=== PATIENT | male | born 1935 | race Hispanic/Latino ===

== ENCOUNTER → 2019-10-28 | Outpatient (CLI) | payer MEDICARE ==
[~2019-10-28] MED LIST: DIATRIZOATE MEGL/DIATRIZOA SOD 30 ML BTL PO ONE; IOPAMIDOL 370 MG/ML 200 ML INFUS..BTL INJ ONE; SODIUM CHLORIDE 0.9% 50ML 50 ML ONE
[2019-10-28 15:17] LABS: BLOOD UREA NITROGEN 19 mg/dL (7-26); BUN/CREATININE RATIO 18 (6-25); CREATININE, SERUM 1.07 mg/dL (0.72-1.25); EST GLOMERULAR FILTRATION RATE > 60 ML/MIN (60-)
--- NOTE | 2019-10-28 16:18 | Diagnostic Imaging Report ---
EXAM: CT Abdomen and Pelvis WITH intravenous contrast INDICATION: Abdominal pain COMPARISON: None. TECHNIQUE: Abdomen and pelvis were scanned utilizing a multidetector helical scanner from the lung base to the pubic symphysis after administration of IV contrast. Coronal and sagittal reformations were obtained. Routine protocol was performed. Scan was performed during portal venous phase. IV CONTRAST: 100mL of Isovue 370 ORAL CONTRAST: Gastrografin RADIATION DOSE: Total DLP: 412 mGy*cm Dose modulation, iterative reconstruction, and/or weight based adjustment of the mA/kV was utilized to reduce the radiation dose to as low as reasonably achievable. FINDINGS: LOWER THORAX: Normal. HEPATOBILIARY: Diffuse hepatic steatosis. No focal liver lesion. No intrahepatic biliary ductal dilation. The common bile duct is prominent and measures up to 8 mm but is within normal range for a patient of this age. Unremarkable gallbladder. SPLEEN: Absent. PANCREAS: No focal masses or ductal dilatation. ADRENALS: No adrenal nodules. KIDNEYS/URETERS: No hydronephrosis or solid mass lesion. Bilateral renal cysts measure up to 4.6 cm on the left and 1.5 cm on the right. Nonobstructive 4 mm left renal calculi. PELVIC ORGANS/BLADDER: The prostate is enlarged and measures up to 5.2 x 5.3 x 5.2 cm (volume estimate 75 cc). PERITONEUM / RETROPERITONEUM: No free air or fluid. LYMPH NODES: No lymphadenopathy. VESSELS: Scattered atherosclerotic calcifications of the nonaneurysmal abdominal aorta and major branches. GI TRACT: Severe sigmoid and descending colon diverticulosis. No CT evidence of diverticulitis. Apparent focal thickening in the pyloric region (axial image 23). BONES AND SOFT TISSUES: No acute osseous injury. IMPRESSION: Severe sigmoid and descending colon diverticulosis without CT evidence of diverticulitis. Apparent focal thickening in the pyloric region may be related to underdistention/peristalsis however a focal lesion in this area cannot be excluded. Further evaluation can be made with upper endoscopy. Nonobstructive 4 mm left renal calculi. Prostatomegaly. Diffuse hepatic steatosis. Signed by: Abhay Calles MD on 10/28/2019 4:15 PM
== END ==
LOC: CT 14:20
PROVIDERS: ATTEND Family Medicine
DX: R10.32 Left lower quadrant pain (principal)
CPT/HCPCS: 36415; 74177; 82565; 84520; Q9967

== ENCOUNTER → 2019-12-24 | Day surgery (SDC) | payer MEDICARE, OTHER ==
[2019-12-19 15:31] LABS: BASOPHILS % 0.6 % (0.0-1.0); EOSINOPHILS # (AUTO) 0.8 (0.0-0.4); HEMATOCRIT 41.7 % (38.2-49.6); HEMOGLOBIN 13.5 g/dL (14.0-18.0); LYMPHOCYTES # (AUTO) 1.7 (1.0-3.2); LYMPHOCYTES % 26.4 % (18.0-39.1); MEAN CORPUSCULAR HEMOGLOBIN 31.7 pg (28-32); MEAN CORPUSCULAR HGB CONC 32.4 g/dL (31-35); MEAN CORPUSCULAR VOLUME 97.9 fL (81-99); MONOCYTES # (AUTO) 0.8 (0.2-0.8); MONOCYTES % 12.8 % (4.4-11.3); PLATELET COUNT 288 x10e3/uL (140-360); RED BLOOD COUNT 4.26 x10e6/uL (4.3-5.7); RED CELL DISTRIBUTION WIDTH 13.2 % (11.7-14.4)
--- NOTE | 2019-12-19 15:34 | Diagnostic Imaging Report ---
EXAMINATION: CHEST 2 VIEWS INDICATION: Pre-operative COMPARISON: None FINDINGS: LINES/TUBES:None LUNGS:The lungs are well-inflated. No focal consolidation or pulmonary edema. PLEURA:No pleural effusion or pneumothorax. MEDIASTINUM:The cardiomediastinal silhouette appears normal in size and shape. BONES/SOFT TISSUES:No acute osseous injury. ABDOMEN:No free air under the diaphragm. IMPRESSION: No focal pneumonia or pulmonary edema. Signed by: Abhay Calles MD on 12/19/2019 3:31 PM
[2019-12-19 15:55] LABS: ALBUMIN 3.6 g/dL (3.5-5.0); ALBUMIN/GLOBULIN RATIO 0.9 (0.8-2.0); ANION GAP 12.5 mmol/L (8-16); CALCIUM 9.4 mg/dL (8.4-10.2); CREATININE, SERUM 1.17 mg/dL (0.72-1.25); POTASSIUM 4.5 mmol/L (3.5-5.1)
[~2019-12-24] MED LIST changes: +ACETAMINOPHEN/CODEINE 300MG - 30MG TAB ONE; +AMLODIPINE BESYL5 MG PO; +AMOXICILLIN250 MG PO; +BUPIVACAINE 0.25% 30ML SDV INJ ONE; +CEFAZOLIN SOD 1 GM VIAL ONE; +CLARITHROMYCIN500 MG PO; +DEXAMETHASONE SOD PHOS INJ 4 MG/ML VIAL ONE; -DIATRIZOATE MEGL/DIATRIZOA SOD 30 ML BTL PO ONE; +FENTANYL CITRATE/PF 100MCG/2 ML INJ ONE; +HEPARIN SOD (PORCINE) 5,000 UNIT/ML VIAL ONE; -IOPAMIDOL 370 MG/ML 200 ML INFUS..BTL INJ ONE; +LANSOPRAZOLE30 MG PO; +LIDOCAINE HCL 2% LOCAL INJ 5 ML SDV VIAL INJ ONE; +ONDANSETRON HCL INJ 2MG/ML 2ML 2 MG/ML VIAL ONE; +PROPOFOL IV EMULSION 10 MG/ML 20 ML VIAL ONE; +SEVOFLURANE INHAL SOLN 250 ML PEN BTL ONE; +SODIUM CHLORIDE 0.9% 500ML 500 ML ONE; -SODIUM CHLORIDE 0.9% 50ML 50 ML ONE
--- NOTE | 2019-12-24 11:53 | Operative Report ---
DATE OF PROCEDURE: 12/24/2019 SURGEON: Oscar Palmer MD PREOPERATIVE DIAGNOSIS: Rectal cancer, needing IV access for chemotherapy. POSTOPERATIVE DIAGNOSIS: Rectal cancer, needing IV access for chemotherapy. OPERATION PERFORMED: Placement of left subclavian venous access port under C-arm guidance. CASING INSPECTOR: PIPPA Vidal. ANESTHESIA: General. COMPLICATIONS: None. ESTIMATED BLOOD LOSS: Minimal. DESCRIPTION OF PROCEDURE: With the patient lying in bed in the supine position under good general anesthesia, the left chest and neck were prepped with Betadine solution and draped in the usual manner. A standard left subclavian venipuncture was performed without any difficulty and a guidewire was advanced into the central venous position. Using the C-arm, the tip of the guidewire was confirmed to be at the level of the superior vena cava and the left lung was fully expanded. A pocket was then created in the left anterior chest to accept the reservoir. The catheter was threaded through the left subclavian position. The reservoir was anchored to anterior chest wall with interrupted sutures of 2-0 silk. The catheter was cut to the appropriate length and the reservoir and catheter were fully heparinized. The peel-away sheath was then placed over the guidewire. The guidewire was removed and the catheter was threaded through the peel-away sheath without any difficulty. The peel-away sheath was removed. There was good blood return and the reservoir and catheter were fully heparinized. Using the C-arm, the tip of the catheter was confirmed to be at the level of the superior vena cava and the left lung was fully expanded. The wounds were then closed in layers. Subcutaneous tissue was approximated with 3-0 and 4-0 Vicryl. The skin was closed with subcuticular 5-0 Vicryl. Benzoin and Steri-Strips were applied. A dressing was placed. Sponge, lap, and needle count was correct. The patient tolerated the procedure well and returned to the recovery room in stable condition. MD TANNER Brooke/CARINAL /[id number]
[2019-12-24 12:25] VITALS: BP 152/94
== END | disposition home or self-care (01) ==
LOC: OR 06:56
PROVIDERS: ATTEND Surgery
DX: C20 Malignant neoplasm of rectum (principal); K57.90 Diverticulosis of intestine, part unspecified, without perforation or abscess without bleeding; I10 Essential (primary) hypertension; Z01.812 Encounter for preprocedural laboratory examination; Z01.818 Encounter for other preprocedural examination; Z11.59 Encounter for screening for other viral diseases
CPT/HCPCS: 36415; 36561; 71046; 77001; 80053; 85025; C1751; J0690; J1100; J1644; J2001; J2405; J2704; J3010; J7040; U0002

== ENCOUNTER 2020-03-29 07:23 | Inpatient (IN) | payer MEDICARE ==
[2020-03-25 10:57] LABS: BASOPHILS # (AUTO) 0.1 (0.0-0.1); BASOPHILS % 0.8 % (0.0-1.0); EOSINOPHILS # (AUTO) 0.6 (0.0-0.4); EOSINOPHILS % 9.6 % (0.0-6.0); HEMATOCRIT 38.7 % (38.2-49.6); HEMOGLOBIN 12.7 g/dL (14.0-18.0); LYMPHOCYTES # (AUTO) 0.6 (1.0-3.2); LYMPHOCYTES % 9.1 % (18.0-39.1); MEAN CORPUSCULAR HEMOGLOBIN 33.2 pg (28-32); MEAN CORPUSCULAR HGB CONC 32.8 g/dL (31-35); MEAN CORPUSCULAR VOLUME 101.3 fL (81-99); MONOCYTES % 15.6 % (4.4-11.3); NEUTROPHILS # (AUTO) 4.2 (2.1-6.9); NEUTROPHILS % 64.6 % (38.7-80.0); PLATELET COUNT 231 x10e3/uL (140-360); RED BLOOD COUNT 3.82 x10e6/uL (4.3-5.7); RED CELL DISTRIBUTION WIDTH 14.4 % (11.7-14.4)
[2020-03-25 11:41] LABS: ALANINE AMINOTRANSFERASE 14 IU/L (0-55); ALBUMIN 3.7 g/dL (3.5-5.0); ALBUMIN/GLOBULIN RATIO 0.9 (0.8-2.0); ALKALINE PHOSPHATASE 78 IU/L (40-150); ANION GAP 11.9 mmol/L (8-16); BLOOD UREA NITROGEN 23 mg/dL (7-26); BUN/CREATININE RATIO 21 (6-25); CALCIUM 9.4 mg/dL (8.4-10.2); CARBON DIOXIDE 28 mmol/L (22-29); CHLORIDE 104 mmol/L (98-107); CREATININE, SERUM 1.11 mg/dL (0.72-1.25); EST GLOMERULAR FILTRATION RATE > 60 ML/MIN (60-); GLUCOSE 108 mg/dL (74-118); POTASSIUM 3.9 mmol/L (3.5-5.1); SODIUM 140 mmol/L (136-145)
[~2020-03-29] VITALS: Ht 167.6 cm; Wt 75.3 kg
[~2020-03-29 07:23] MED LIST changes: -ACETAMINOPHEN/CODEINE 300MG - 30MG TAB ONE; -BUPIVACAINE 0.25% 30ML SDV INJ ONE; -CEFAZOLIN SOD 1 GM VIAL ONE; -DEXAMETHASONE SOD PHOS INJ 4 MG/ML VIAL ONE; -FENTANYL CITRATE/PF 100MCG/2 ML INJ ONE; +FLAXSEED1000 MG PO; -HEPARIN SOD (PORCINE) 5,000 UNIT/ML VIAL ONE; -LIDOCAINE HCL 2% LOCAL INJ 5 ML SDV VIAL INJ ONE; -ONDANSETRON HCL INJ 2MG/ML 2ML 2 MG/ML VIAL ONE; -PROPOFOL IV EMULSION 10 MG/ML 20 ML VIAL ONE; -SEVOFLURANE INHAL SOLN 250 ML PEN BTL ONE; -SODIUM CHLORIDE 0.9% 500ML 500 ML ONE; +VITAMIN D310 MCG PO; +VITAMIN E400 UNI1 PO; +ZINC SULFATE220 M1 PO
[2020-03-29] MEDS ORDERED: HEPARIN SOD/SOD CHLORIDE 1,000 ML ONE (08:04)
[2020-03-29] MEDS ORDERED: ACETAMINOPHEN 1000 MG/100 ML 100 ML IV ONE (11:25)
[2020-03-29] MEDS ORDERED: HYDROMORPHONE 1MG/1ML INJ ONE (11:35)
[2020-03-29] MEDS ORDERED: FENTANYL CITRATE/PF 100MCG/2 ML INJ ONE ×2 (12:10→15:51)
[2020-03-29] MEDS ORDERED: ONDANSETRON HCL INJ 2MG/ML 2ML 2 MG/ML VIAL ONE (12:59)
[2020-03-29] MEDS ORDERED: ROCURONIUM BROMIDE 10 MG/ML 5ML VIAL IV ONE (12:59)
[2020-03-29] MEDS ORDERED: NEOSTIGMINE 1 MG/ML 10ML VIAL ONE (12:59)
[2020-03-29] MEDS ORDERED: SEVOFLURANE INHAL SOLN 250 ML PEN BTL ONE (12:59)
[2020-03-29] MEDS ORDERED: CEFOXITIN SOD 1 GM VIAL ONE (12:59)
[2020-03-29] MEDS ORDERED: PROPOFOL IV EMULSION 10 MG/ML 20 ML VIAL ONE (12:59)
[2020-03-29] MEDS ORDERED: DEXAMETHASONE SOD PHOS INJ 4 MG/ML VIAL ONE (12:59)
[2020-03-29] MEDS ORDERED: PHENYLEPHRINE HCL 1% 10 MG/ML VIAL ONE (12:59)
[2020-03-29] MEDS ORDERED: GLYCOPYRROLATE INJ 0.2 MG/ML VIAL ONE (12:59)
[2020-03-29] MEDS ORDERED: LIDOCAINE HCL 2% LOCAL INJ 5 ML SDV VIAL INJ ONE (12:59)
[2020-03-29 14:17] LABS: HEMATOCRIT 26.4 % (38.2-49.6); HEMOGLOBIN 8.6 g/dL (14.0-18.0)
[2020-03-29] MEDS ORDERED: SODIUM CHLORIDE 0.9% 250ML 250 ML IV ONE (14:45)
[2020-03-29] MEDS: SODIUM CHLORIDE 0.9% 250ML IRRIG IR SCH ×4 (15:15→23:00)
[2020-03-29] MEDS ORDERED: ACETAMINOPHEN 1000 MG/100 ML IV PRN (15:15)
[2020-03-29] MEDS ORDERED: METOCLOPRAMIDE HCL 10 MG/2ML VIAL ONE (16:19)
[2020-03-29] MEDS: CEFTRIAXONE SOD 1 GM/NS 50 ML 50 ML IV SCH (17:13)
[2020-03-29] MEDS: SODIUM CHLORIDE 0.9% 1000ML 1,000 ML IV SCH (17:13)
[2020-03-29] MEDS: PANTOPRAZOLE 40 MG 10ML VIAL IV SCH (17:13)
[2020-03-29 17:45] VITALS: BP 109/68
[2020-03-29 18:14] VITALS: BP 109/68
[2020-03-29] MEDS: ONDANSETRON HCL INJ 2MG/ML 2ML 2 MG/ML VIAL IV PRN (18:47)
[2020-03-29] MEDS: HYDROMORPHONE 1MG/1ML INJ IV PRN ×2 (18:48→22:27)
[2020-03-29 20:12] VITALS: BP 105/75
[2020-03-29 20:13] VITALS: BP 105/75
[2020-03-30] VITALS (10 sets, daily range): BP systolic 107–138; BP diastolic 63–88
[2020-03-30] MEDS: SODIUM CHLORIDE 0.9% 1000ML 1,000 ML IV SCH ×3 (03:00→22:52)
[2020-03-30] MEDS: SODIUM CHLORIDE 0.9% 250ML IRRIG IR SCH ×6 (03:01→23:25)
[2020-03-30] MEDS: HYDROMORPHONE 1MG/1ML INJ IV PRN ×6 (05:11→22:52)
[2020-03-30] MEDS: ONDANSETRON HCL INJ 2MG/ML 2ML 2 MG/ML VIAL IV PRN ×3 (08:47→23:25)
[2020-03-30 09:30] LABS: BASOPHILS % 0.2 % (0.0-1.0); HEMATOCRIT 32.5 % (38.2-49.6); HEMOGLOBIN 10.7 g/dL (14.0-18.0); LYMPHOCYTES # (AUTO) 0.4 (1.0-3.2); LYMPHOCYTES % 2.2 % (18.0-39.1); MEAN CORPUSCULAR HEMOGLOBIN 32.2 pg (28-32); MEAN CORPUSCULAR HGB CONC 32.9 g/dL (31-35); MEAN CORPUSCULAR VOLUME 97.9 fL (81-99); MONOCYTES # (AUTO) 1.5 (0.2-0.8); MONOCYTES % 8.9 % (4.4-11.3); NEUTROPHILS # (AUTO) 14.5 (2.1-6.9); NEUTROPHILS % 88.2 % (38.7-80.0); PLATELET COUNT 146 x10e3/uL (140-360); RED BLOOD COUNT 3.32 x10e6/uL (4.3-5.7); RED CELL DISTRIBUTION WIDTH 16.3 % (11.7-14.4)
[2020-03-30 09:59] LABS: ALBUMIN 2.6 g/dL (3.5-5.0); ALBUMIN/GLOBULIN RATIO 0.9 (0.8-2.0); ANION GAP 8.9 mmol/L (8-16); CALCIUM 7.8 mg/dL (8.4-10.2); CREATININE, SERUM 1.25 mg/dL (0.72-1.25); POTASSIUM 4.9 mmol/L (3.5-5.1)
[2020-03-30] MEDS: PANTOPRAZOLE 40 MG 10ML VIAL IV SCH (15:15)
[2020-03-30] MEDS: CEFTRIAXONE SOD 1 GM/NS 50 ML 50 ML IV SCH (15:15)
[2020-03-31] VITALS (8 sets, daily range): BP systolic 108–134; BP diastolic 62–82
[2020-03-31] MEDS: SODIUM CHLORIDE 0.9% 250ML IRRIG IR SCH ×3 (03:35→11:01)
[2020-03-31] MEDS: HYDROMORPHONE 1MG/1ML INJ IV PRN ×5 (03:44→20:37)
[2020-03-31] MEDS: ONDANSETRON HCL INJ 2MG/ML 2ML 2 MG/ML VIAL IV PRN ×4 (03:44→17:12)
[2020-03-31] MEDS: SODIUM CHLORIDE 0.9% 1000ML 1,000 ML IV SCH ×2 (07:33→17:12)
[2020-03-31 09:18] LABS: BASOPHILS % 0.1 % (0.0-1.0); HEMATOCRIT 25.9 % (38.2-49.6); HEMOGLOBIN 8.5 g/dL (14.0-18.0); LYMPHOCYTES # (AUTO) 0.6 (1.0-3.2); LYMPHOCYTES % 2.9 % (18.0-39.1); MEAN CORPUSCULAR HEMOGLOBIN 32.4 pg (28-32); MEAN CORPUSCULAR HGB CONC 32.8 g/dL (31-35); MEAN CORPUSCULAR VOLUME 98.9 fL (81-99); MONOCYTES % 10.3 % (4.4-11.3); NEUTROPHILS # (AUTO) 16.3 (2.1-6.9); NEUTROPHILS % 85.9 % (38.7-80.0); PLATELET COUNT 122 x10e3/uL (140-360); RED BLOOD COUNT 2.62 x10e6/uL (4.3-5.7); RED CELL DISTRIBUTION WIDTH 16.2 % (11.7-14.4)
[2020-03-31 09:41] LABS: ALANINE AMINOTRANSFERASE 11 IU/L (0-55); ALBUMIN 2.4 g/dL (3.5-5.0); ALBUMIN/GLOBULIN RATIO 0.9 (0.8-2.0); ALKALINE PHOSPHATASE 37 IU/L (40-150); ANION GAP 8.3 mmol/L (8-16); BLOOD UREA NITROGEN 21 mg/dL (7-26); BUN/CREATININE RATIO 23 (6-25); CALCIUM 7.6 mg/dL (8.4-10.2); CARBON DIOXIDE 27 mmol/L (22-29); CHLORIDE 112 mmol/L (98-107); CREATININE, SERUM 0.91 mg/dL (0.72-1.25); EST GLOMERULAR FILTRATION RATE > 60 ML/MIN (60-); GLUCOSE 97 mg/dL (74-118); POTASSIUM 4.3 mmol/L (3.5-5.1); SODIUM 143 mmol/L (136-145)
[2020-03-31] MEDS: PANTOPRAZOLE 40 MG 10ML VIAL IV SCH (15:55)
[2020-03-31] MEDS: CEFTRIAXONE SOD 1 GM/NS 50 ML 50 ML IV SCH (15:55)
[2020-04-01] VITALS (7 sets, daily range): BP systolic 118–138; BP diastolic 58–77
[2020-04-01] MEDS: ONDANSETRON HCL INJ 2MG/ML 2ML 2 MG/ML VIAL IV PRN ×5 (01:25→23:00)
[2020-04-01] MEDS: HYDROMORPHONE 1MG/1ML INJ IV PRN ×5 (01:25→23:03)
[2020-04-01] MEDS: SODIUM CHLORIDE 0.9% 1000ML 1,000 ML IV SCH ×3 (03:37→22:57)
[2020-04-01 05:10] LABS: BASOPHILS % 0.1 % (0.0-1.0); EOSINOPHILS % 0.3 % (0.0-6.0); HEMATOCRIT 26.1 % (38.2-49.6); HEMOGLOBIN 8.5 g/dL (14.0-18.0); LYMPHOCYTES # (AUTO) 0.6 (1.0-3.2); LYMPHOCYTES % 3.9 % (18.0-39.1); MEAN CORPUSCULAR HEMOGLOBIN 32.8 pg (28-32); MEAN CORPUSCULAR HGB CONC 32.6 g/dL (31-35); MEAN CORPUSCULAR VOLUME 100.8 fL (81-99); MONOCYTES # (AUTO) 1.4 (0.2-0.8); MONOCYTES % 9.7 % (4.4-11.3); NEUTROPHILS # (AUTO) 12.7 (2.1-6.9); NEUTROPHILS % 85.5 % (38.7-80.0); PLATELET COUNT 135 x10e3/uL (140-360); RED BLOOD COUNT 2.59 x10e6/uL (4.3-5.7)
[2020-04-01 05:31] LABS: ALANINE AMINOTRANSFERASE 12 IU/L (0-55); ALBUMIN 2.3 g/dL (3.5-5.0); ALBUMIN/GLOBULIN RATIO 0.8 (0.8-2.0); ALKALINE PHOSPHATASE 39 IU/L (40-150); ANION GAP 9.1 mmol/L (8-16); BLOOD UREA NITROGEN 16 mg/dL (7-26); BUN/CREATININE RATIO 19 (6-25); CALCIUM 7.9 mg/dL (8.4-10.2); CARBON DIOXIDE 28 mmol/L (22-29); CHLORIDE 108 mmol/L (98-107); CREATININE, SERUM 0.84 mg/dL (0.72-1.25); EST GLOMERULAR FILTRATION RATE > 60 ML/MIN (60-); GLUCOSE 87 mg/dL (74-118); POTASSIUM 4.1 mmol/L (3.5-5.1); SODIUM 141 mmol/L (136-145)
[2020-04-01] MEDS: CEFTRIAXONE SOD 1 GM/NS 50 ML 50 ML IV SCH (15:12)
[2020-04-01] MEDS: PANTOPRAZOLE 40 MG 10ML VIAL IV SCH (16:26)
[2020-04-02] VITALS (8 sets, daily range): BP systolic 127–140; BP diastolic 69–82
[2020-04-02] MEDS: SODIUM CHLORIDE 0.9% 1000ML 1,000 ML IV SCH ×3 (06:10→18:45)
[2020-04-02] MEDS: ONDANSETRON HCL INJ 2MG/ML 2ML 2 MG/ML VIAL IV PRN ×2 (07:17→19:28)
[2020-04-02] MEDS: HYDROMORPHONE 1MG/1ML INJ IV PRN ×2 (07:18→19:28)
[2020-04-02] MEDS: CEFTRIAXONE SOD 1 GM/NS 50 ML 50 ML IV SCH (16:15)
[2020-04-02] MEDS: PANTOPRAZOLE 40 MG 10ML VIAL IV SCH (16:15)
[2020-04-03] VITALS (9 sets, daily range): BP systolic 114–130; BP diastolic 60–76
[2020-04-03] MEDS: HYDROMORPHONE 1MG/1ML INJ IV PRN ×2 (08:42→15:19)
[2020-04-03] MEDS: SODIUM CHLORIDE 0.9% 1000ML 1,000 ML IV SCH (12:39)
[2020-04-03] MEDS: PANTOPRAZOLE 40 MG 10ML VIAL IV SCH (16:30)
[2020-04-03] MEDS: CEFTRIAXONE SOD 1 GM/NS 50 ML 50 ML IV SCH (16:30)
[2020-04-03] MEDS: HYDROCODONE/APAP 5MG-325MG TAB PO PRN ×2 (18:05→23:25)
[2020-04-03] MEDS: METOPROLOL TARTRATE 25 MG TAB PO SCH (21:39)
[2020-04-04] VITALS (9 sets, daily range): BP systolic 120–139; BP diastolic 65–81
[2020-04-04 05:46] LABS: BASOPHILS % 0.4 % (0.0-1.0); EOSINOPHILS # (AUTO) 0.5 (0.0-0.4); EOSINOPHILS % 5.2 % (0.0-6.0); HEMATOCRIT 26.2 % (38.2-49.6); HEMOGLOBIN 8.7 g/dL (14.0-18.0); LYMPHOCYTES # (AUTO) 0.5 (1.0-3.2); LYMPHOCYTES % 5.1 % (18.0-39.1); MEAN CORPUSCULAR HGB CONC 33.2 g/dL (31-35); MEAN CORPUSCULAR VOLUME 96.3 fL (81-99); MONOCYTES # (AUTO) 1.7 (0.2-0.8); MONOCYTES % 16.6 % (4.4-11.3); NEUTROPHILS # (AUTO) 7.2 (2.1-6.9); PLATELET COUNT 190 x10e3/uL (140-360); RED BLOOD COUNT 2.72 x10e6/uL (4.3-5.7); RED CELL DISTRIBUTION WIDTH 15.3 % (11.7-14.4)
[2020-04-04] MEDS: METOPROLOL TARTRATE 25 MG TAB PO SCH ×3 (06:15→22:50)
[2020-04-04 06:16] LABS: ALANINE AMINOTRANSFERASE 16 IU/L (0-55); ALBUMIN 2.1 g/dL (3.5-5.0); ALBUMIN/GLOBULIN RATIO 0.7 (0.8-2.0); ALKALINE PHOSPHATASE 45 IU/L (40-150); ANION GAP 9.4 mmol/L (8-16); BLOOD UREA NITROGEN 10 mg/dL (7-26); BUN/CREATININE RATIO 15 (6-25); CALCIUM 7.8 mg/dL (8.4-10.2); CARBON DIOXIDE 27 mmol/L (22-29); CHLORIDE 104 mmol/L (98-107); CREATININE, SERUM 0.68 mg/dL (0.72-1.25); EST GLOMERULAR FILTRATION RATE > 60 ML/MIN (60-); GLUCOSE 100 mg/dL (74-118); MAGNESIUM 1.8 MG/DL (1.3-2.1); POTASSIUM 3.4 mmol/L (3.5-5.1); SODIUM 137 mmol/L (136-145)
[2020-04-04] MEDS: HYDROCODONE/APAP 5MG-325MG TAB PO PRN ×4 (07:50→22:50)
[2020-04-04] MEDS: SODIUM CHLORIDE 0.9% 1000ML 1,000 ML IV SCH (12:26)
[2020-04-04] MEDS: PANTOPRAZOLE 40 MG 10ML VIAL IV SCH (14:41)
[2020-04-04] MEDS: CEFTRIAXONE SOD 1 GM/NS 50 ML 50 ML IV SCH (14:41)
[2020-04-04] MEDS ORDERED: POTASSIUM CHLORIDE 20 MEQ TAB CR PO ONE ×2 (15:00→16:30)
[2020-04-05] VITALS (7 sets, daily range): BP systolic 118–137; BP diastolic 60–80
[2020-04-05] MEDS: METOPROLOL TARTRATE 25 MG TAB PO SCH ×3 (05:50→21:57)
[2020-04-05] MEDS: HYDROCODONE/APAP 5MG-325MG TAB PO PRN ×3 (08:42→21:58)
[2020-04-05] MEDS: CEFTRIAXONE SOD 1 GM/NS 50 ML 50 ML IV SCH (16:25)
[2020-04-05] MEDS: PANTOPRAZOLE 40 MG 10ML VIAL IV SCH (16:25)
[2020-04-06] VITALS (7 sets, daily range): BP systolic 120–137; BP diastolic 69–77
[2020-04-06] MEDS: SODIUM CHLORIDE 0.9% 1000ML 1,000 ML IV SCH ×2 (03:15→09:55)
[2020-04-06] MEDS: METOPROLOL TARTRATE 25 MG TAB PO SCH ×2 (06:03→13:56)
[2020-04-06 07:51] LABS: BASOPHILS % 0.4 % (0.0-1.0); EOSINOPHILS # (AUTO) 0.6 (0.0-0.4); EOSINOPHILS % 5.4 % (0.0-6.0); HEMATOCRIT 28.1 % (38.2-49.6); HEMOGLOBIN 9.2 g/dL (14.0-18.0); LYMPHOCYTES # (AUTO) 0.5 (1.0-3.2); LYMPHOCYTES % 4.7 % (18.0-39.1); MEAN CORPUSCULAR HEMOGLOBIN 31.8 pg (28-32); MEAN CORPUSCULAR HGB CONC 32.7 g/dL (31-35); MEAN CORPUSCULAR VOLUME 97.2 fL (81-99); MONOCYTES # (AUTO) 1.4 (0.2-0.8); MONOCYTES % 13.4 % (4.4-11.3); NEUTROPHILS # (AUTO) 7.8 (2.1-6.9); NEUTROPHILS % 74.7 % (38.7-80.0); PLATELET COUNT 270 x10e3/uL (140-360); RED BLOOD COUNT 2.89 x10e6/uL (4.3-5.7); RED CELL DISTRIBUTION WIDTH 15.8 % (11.7-14.4)
[2020-04-06 08:13] LABS: ANION GAP 9.6 mmol/L (8-16); BLOOD UREA NITROGEN 11 mg/dL (7-26); BUN/CREATININE RATIO 15 (6-25); CARBON DIOXIDE 26 mmol/L (22-29); CHLORIDE 105 mmol/L (98-107); CREATININE, SERUM 0.72 mg/dL (0.72-1.25); EST GLOMERULAR FILTRATION RATE > 60 ML/MIN (60-); GLUCOSE 100 mg/dL (74-118); POTASSIUM 3.6 mmol/L (3.5-5.1); SODIUM 137 mmol/L (136-145)
[2020-04-06] MEDS: PANTOPRAZOLE 40 MG 10ML VIAL IV SCH (13:56)
[2020-04-06] MEDS: CEFTRIAXONE SOD 1 GM/NS 50 ML 50 ML IV SCH (13:56)
[2020-04-06] MEDS: HYDROCODONE/APAP 5MG-325MG TAB PO PRN (15:05)
== END 2020-04-06 19:45 | disposition home or self-care (01) | DRG 333 ==
LOC: OR 07:23 → PACU V 15:15 → IMCU 16:31 → MED/SURG 03-31 11:19
PROVIDERS: ADMIT Surgery; ATTEND Surgery
PROC: 0DTP0ZZ Resection of Rectum, Open Approach (ICD-10-PCS; 2020-03-29)
PROC: 30243N1 Transfusion of Nonautologous Red Blood Cells into Central Vein, Percutaneous Approach (ICD-10-PCS; 2020-03-29)
PROC: 0DJW4ZZ Inspection of Peritoneum, Percutaneous Endoscopic Approach (ICD-10-PCS; principal; 2020-03-29 09:40)
DX: C20 Malignant neoplasm of rectum (principal); D62 Acute posthemorrhagic anemia; Z20.828 Contact with and (suspected) exposure to other viral communicable diseases; Z93.3 Colostomy status; I10 Essential (primary) hypertension; R00.1 Bradycardia, unspecified; Z90.81 Acquired absence of spleen; E78.5 Hyperlipidemia, unspecified
CPT/HCPCS: 36415; 71046; 74018; 80048; 80053; 83735; 85014; 85018; 85025; 86850; 86900; 86920; 88307; 93005; J0694; J0696; J1100; J1170; J2001; J2370; J2405; J2710; J2765; J3010; J7030; P9016; U0002

== ENCOUNTER → 2021-07-25 | Outpatient (CLI) | payer MEDICARE ==
[~2021-07-25] MED LIST changes: +DIATRIZOATE MEGL/DIATRIZOA SOD 30 ML BTL PO ONE; +IOPAMIDOL 370 MG/ML 200 ML INFUS..BTL INJ ONE; +SODIUM CHLORIDE 0.9% 50ML 50 ML ONE
[2021-07-25 10:38] LABS: BASOPHILS % 0.8 % (0.0-1.0); EOSINOPHILS # (AUTO) 0.6 (0.0-0.4); HEMATOCRIT 40.7 % (38.2-49.6); HEMOGLOBIN 13.4 g/dL (14.0-18.0); LYMPHOCYTES # (AUTO) 1.4 (1.0-3.2); LYMPHOCYTES % 26.6 % (18.0-39.1); MEAN CORPUSCULAR HEMOGLOBIN 32.6 pg (28-32); MEAN CORPUSCULAR HGB CONC 32.9 g/dL (31-35); MONOCYTES # (AUTO) 0.7 (0.2-0.8); MONOCYTES % 13.6 % (4.4-11.3); NEUTROPHILS # (AUTO) 2.5 (2.1-6.9); NEUTROPHILS % 47.8 % (38.7-80.0); PLATELET COUNT 237 x10e3/uL (140-360); RED BLOOD COUNT 4.11 x10e6/uL (4.3-5.7); RED CELL DISTRIBUTION WIDTH 13.2 % (11.7-14.4)
[2021-07-25 11:01] LABS: ALBUMIN 3.6 g/dL (3.5-5.0); ALBUMIN/GLOBULIN RATIO 0.9 (0.8-2.0); ANION GAP 10.2 mmol/L (8-16); CALCIUM 9.8 mg/dL (8.4-10.2); CREATININE, SERUM 1.05 mg/dL (0.72-1.25); POTASSIUM 4.2 mmol/L (3.5-5.1)
== END ==
LOC: CT 09:42
PROVIDERS: ATTEND Surgery
DX: C20 Malignant neoplasm of rectum (principal)
CPT/HCPCS: 36415; 71046; 74177; 80053; 82378; 85025; 93005; Q9967

== ENCOUNTER → 2021-08-08 | Day surgery (SDC) | payer MEDICARE ==
[~2021-08-08] MED LIST changes: +BUPIVACAINE HCL 0.5% INJ 30 ML VIAL INJ ONE; -DIATRIZOATE MEGL/DIATRIZOA SOD 30 ML BTL PO ONE; -IOPAMIDOL 370 MG/ML 200 ML INFUS..BTL INJ ONE; +LIDOCAINE 1% W/EPINEPHRINE 20 ML VIAL ONE; +LIDOCAINE HCL 2% LOCAL INJ 5 ML SDV VIAL INJ ONE; +POVIDONE IODINE 0.05% 0.05 % ML PO ONE; +PROPOFOL IV EMULSION 10 MG/ML 20 ML VIAL ONE; -SODIUM CHLORIDE 0.9% 50ML 50 ML ONE
[2021-08-08 10:20] VITALS: BP 127/70
== END | disposition home or self-care (01) ==
LOC: OR 06:21
PROVIDERS: ATTEND Surgery
DX: T83.018A Breakdown (mechanical) of other urinary catheter, initial encounter (principal); Z85.038 Personal history of other malignant neoplasm of large intestine; K57.30 Diverticulosis of large intestine without perforation or abscess without bleeding; Z93.3 Colostomy status; I10 Essential (primary) hypertension; Y83.8 Other surgical procedures as the cause of abnormal reaction of the patient, or of later complication, without mention of misadventure at the time of the procedure; Z01.812 Encounter for preprocedural laboratory examination; Z20.822 Contact with and (suspected) exposure to COVID-19; Z79.899 Other long term (current) drug therapy
CPT/HCPCS: 36590; 44388; U0002; 45378; J2001

== ENCOUNTER → 2022-02-06 | Outpatient (CLI) | payer MEDICARE ==
[~2022-02-06] MED LIST changes: -BUPIVACAINE HCL 0.5% INJ 30 ML VIAL INJ ONE; +DIATRIZOATE MEGL/DIATRIZOA SOD 30 ML BTL PO ONE; +IOPAMIDOL 370 MG/ML 100 ML INFUS..BTL INJ ONE; -LIDOCAINE 1% W/EPINEPHRINE 20 ML VIAL ONE; -LIDOCAINE HCL 2% LOCAL INJ 5 ML SDV VIAL INJ ONE; -POVIDONE IODINE 0.05% 0.05 % ML PO ONE; -PROPOFOL IV EMULSION 10 MG/ML 20 ML VIAL ONE
[2022-02-06 14:26] LABS: CREATININE, SERUM 1.02 mg/dL (0.72-1.25)
== END ==
LOC: CT 13:21
PROVIDERS: ATTEND Surgery
DX: Z85.048 Personal history of other malignant neoplasm of rectum, rectosigmoid junction, and anus (principal); K57.90 Diverticulosis of intestine, part unspecified, without perforation or abscess without bleeding; N40.0 Benign prostatic hyperplasia without lower urinary tract symptoms
CPT/HCPCS: 36415; 74177; 82565; 84520; Q9963; Q9967

== ENCOUNTER → 2024-04-14 | Outpatient (REF) | payer OTHER ==
[2024-04-14 10:18] LABS: CREATININE, SERUM 1.14 mg/dL (0.72-1.25)
== END ==
LOC: CT 09:25
PROVIDERS: ATTEND Surgery
DX: C20 Malignant neoplasm of rectum (principal); K86.9 Disease of pancreas, unspecified; M51.379 Other intervertebral disc degeneration, lumbosacral region without mention of lumbar back pain or lower extremity pain; Z93.3 Colostomy status
CPT/HCPCS: 36415; 74177; 82565; 84520; Q9963; Q9967

== ENCOUNTER 2024-12-16 13:54 | Inpatient (IN) | payer MEDICARE ==
[~2024-12-16] VITALS: Ht 167.6 cm; Wt 75.3 kg
[~2024-12-16 13:54] MED LIST changes: -DIATRIZOATE MEGL/DIATRIZOA SOD 30 ML BTL PO ONE; -IOPAMIDOL 370 MG/ML 100 ML INFUS..BTL INJ ONE
[2024-12-16] MEDS ORDERED: HYDRALAZINE HCL 20 MG/ML VIAL IV STA (15:09)
[2024-12-16] MEDS: METOPROLOL TARTRATE 25 MG TAB PO ONE (15:50)
[2024-12-16] MEDS: ASPIRIN 81 MG CHEW TAB PO ONE (15:53)
[2024-12-16 16:08] LABS: BASOPHILS % 0.5 % (0.0-1.0); EOSINOPHILS % 2.3 % (0.0-6.0); LYMPHOCYTES % 13.1 % (18.0-39.1); MONOCYTES % 8.8 % (4.4-11.3); NEUTROPHILS % 75.1 % (38.7-80.0); RED CELL DISTRIBUTION WIDTH 13.8 % (11.7-14.4)
[2024-12-16 16:21] LABS: INR 1.02
[2024-12-16 16:30] LABS: EST GLOMERULAR FILTRATION RATE 67.0 ML/MIN (>=60)
[2024-12-16] MEDS: Morphine 2mg Syringe 2 MG/ML SYR IV STA (16:31)
[2024-12-16] MEDS: ONDANSETRON HCL INJ 2MG/ML 2ML 2 MG/ML VIAL IV STA (16:31)
[2024-12-16] MEDS: NITROGLYCERIN 2% OINT 1 GM PKT TOP ONE (16:33)
[2024-12-16] MEDS: ENOXAPARIN INJ 80 MG/0.8 ML SYR SC SCH (16:35)
[2024-12-16] MEDS ORDERED: ONDANSETRON HCL INJ 2MG/ML 2ML 2 MG/ML VIAL IV PRN (17:00)
[2024-12-16] MEDS ORDERED: Morphine 2mg Syringe 2 MG/ML SYR IV PRN (17:00)
[2024-12-16] MEDS: NITROGLYCERIN 2% OINT 1 GM PKT TOP SCH (17:21)
[2024-12-16 17:30] VITALS: PULSE 81; RESP 14; TEMP 97.9
[2024-12-16 18:13] VITALS: BP 150/91; PULSE 80; RESP 19; TEMP 97.9; O2SAT 98
[2024-12-16 19:40] LABS: CHOL/HDL RATIO 2.8 (3.9-4.7); LDL CHOLESTEROL 103 MG/DL (60-130)
[2024-12-16 20:00] VITALS: BP 117/64; PULSE 58; RESP 16; TEMP 98.1; O2SAT 97
[2024-12-16 20:00] LABS: T3 UPTAKE 32.12 % (22.5-37.0)
[2024-12-16] MEDS: METOPROLOL TARTRATE 25 MG TAB PO SCH (21:00)
[2024-12-17] VITALS (9 sets, daily range): BP systolic 121–156; BP diastolic 75–88; PULSE 53–84; RESP 16–20; TEMP 97.3–98.1; O2SAT 95–100
[2024-12-17] MEDS: ACETAMINOPHEN 325 MG TAB PO PRN (04:17)
[2024-12-17 05:14] LABS: BASOPHILS % 0.6 % (0.0-1.0); EOSINOPHILS % 1.4 % (0.0-6.0); LYMPHOCYTES % 15.7 % (18.0-39.1); MONOCYTES % 11.9 % (4.4-11.3); NEUTROPHILS % 70.1 % (38.7-80.0); RED CELL DISTRIBUTION WIDTH 13.6 % (11.7-14.4)
[2024-12-17 05:53] LABS: CHOL/HDL RATIO 2.8 (3.9-4.7); EST GLOMERULAR FILTRATION RATE 81.0 ML/MIN (>=60); LDL CHOLESTEROL 75.0 MG/DL (60-130)
[2024-12-17] MEDS: ZOLPIDEM TARTRATE 5 MG TAB PO PRN (21:08)
[2024-12-18] VITALS (9 sets, daily range): BP systolic 123–152; BP diastolic 71–128; PULSE 66–86; RESP 16–18; TEMP 97.2–98.1; O2SAT 94–99
[2024-12-18] MEDS ORDERED: REGADENOSON 0.4 MG/5 ML SYR IV ONE (15:07)
[2024-12-18] MEDS ORDERED: SODIUM CHLORIDE 0.9% 1000ML 1,000 ML IV SCH (17:30)
[2024-12-18] MEDS: CLOPIDOGREL BISULFATE 75 MG TAB PO ONE (20:29)
[2024-12-18] MEDS: SODIUM CHLORIDE 0.9% 1000ML 1,000 ML IV SCH (20:30)
[2024-12-19] VITALS (12 sets, daily range): BP systolic 130–160; BP diastolic 75–94; PULSE 72–88; RESP 10–20; TEMP 97.5–98.1; O2SAT 95–99
[2024-12-19 05:14] LABS: BASOPHILS % 0.4 % (0.0-1.0); EOSINOPHILS % 0.6 % (0.0-6.0); LYMPHOCYTES % 14.3 % (18.0-39.1); MONOCYTES % 14.3 % (4.4-11.3); NEUTROPHILS % 70.1 % (38.7-80.0); RED CELL DISTRIBUTION WIDTH 13.6 % (11.7-14.4)
[2024-12-19 05:43] LABS: EST GLOMERULAR FILTRATION RATE 78.0 ML/MIN (>=60)
[2024-12-19] MEDS: HEPARIN SOD/SOD CHLORIDE 2,000 ML ONE (13:24)
[2024-12-19] MEDS: LIDOCAINE HCL 2% LOCAL 20 ML VIAL ONE (13:24)
[2024-12-19] MEDS: SODIUM CHLORIDE 0.9% 1000ML 1,000 ML ONE (13:24)
[2024-12-19] MEDS: IOPAMIDOL 370 MG/ML 100 ML INFUS..BTL INJ ONE (13:24)
[2024-12-19] MEDS: HEPARIN SOD (PORCINE) 1000 UNIT/ML 30ML ONE (13:24)
[2024-12-19] MEDS: FENTANYL CITRATE/PF 100MCG/2 ML INJ ONE (13:25)
[2024-12-19] MEDS: MIDAZOLAM HCL 2 MG/2 ML VIAL ONE (13:25)
[2024-12-19] MEDS: SODIUM CHLORIDE 0.9% 1000ML 1,000 ML IV SCH (14:58)
[2024-12-19] MEDS ORDERED: ELIQUIS5 MG PO (18:32)
[2024-12-19] MEDS ORDERED: LOPRESSOR25 MG PO (18:32)
[2024-12-20 04:48] VITALS: BP 153/93; PULSE 88; RESP 18; TEMP 97.9; O2SAT 97
[2024-12-20 08:00] VITALS: BP 153/93; PULSE 80; PULSE 88; RESP 18; TEMP 97.9; O2SAT 97
[2024-12-20] MEDS: APIXABAN 5 MG TABLET PO SCH (10:22)
[2024-12-20 10:29] VITALS: BP 147/94; PULSE 67
[2024-12-20] MEDS ORDERED: METOPROLOL TART25 MG PO (11:06)
[2024-12-20] MEDS ORDERED: ELIQUIS5 MG PO (11:14)
[2024-12-20] MEDS: LOSARTAN POTASSIUM 25 MG TAB PO SCH (14:00)
[2024-12-20] MEDS ORDERED: CRESTOR 10MG PO SCH (21:00)
== END 2024-12-20 13:55 | disposition home or self-care (01) | DRG 286 ==
LOC: ER 15:15 → ERHOLD 17:06 → MED/SURG 18:06
PROVIDERS: ADMIT Family Medicine; ATTEND Family Medicine
PROC: 4A023N7 Measurement of Cardiac Sampling and Pressure, Left Heart, Percutaneous Approach (ICD-10-PCS; principal; 2024-12-19)
PROC: B2111ZZ Fluoroscopy of Multiple Coronary Arteries using Low Osmolar Contrast (ICD-10-PCS; 2024-12-19)
PROC: B2151ZZ Fluoroscopy of Left Heart using Low Osmolar Contrast (ICD-10-PCS; 2024-12-19)
DX: I25.10 Atherosclerotic heart disease of native coronary artery without angina pectoris (principal); I50.21 Acute systolic (congestive) heart failure; I48.91 Unspecified atrial fibrillation; M25.512 Pain in left shoulder; I49.3 Ventricular premature depolarization; H40.9 Unspecified glaucoma; R35.0 Frequency of micturition; E11.9 Type 2 diabetes mellitus without complications; I11.0 Hypertensive heart disease with heart failure; D64.9 Anemia, unspecified; R53.81 Other malaise; Z85.048 Personal history of other malignant neoplasm of rectum, rectosigmoid junction, and anus; Z93.3 Colostomy status; Z90.49 Acquired absence of other specified parts of digestive tract
CPT/HCPCS: 36415; 71045; 76937; 78452; 80053; 80061; 82550; 83735; 83880; 84436; 84443; 84479; 84484; 85025; 85610; 85730; 93005; 93017; 93306; 93458; 99152; 99153; 99284; A9502; C1766; C1769; C1887; J1644; J1650; J2003; J2250; J2270; J2405; J7030; Q9967